=== PATIENT | female | born 1980 | race Caucasian/White ===

== ENCOUNTER 2023-10-26 09:16 | Emergency (ER) | payer OTHER ==
[~2023-10-26] VITALS: Ht 182.9 cm; Wt 63.0 kg
[2023-10-26 09:33] VITALS: BP_SYST 107; PULSE 82; RESP 16; TEMP 98.8; O2SAT 99
[2023-10-26] MEDS: KETOROLAC TROMETHAMINE 30 MG VIAL IM ONE (10:04)
[2023-10-26] MEDS: ACETAMINOPHEN 500 MG TABLET PO ONE (10:04)
[2023-10-26] MEDS: LIDOCAINE PATCH 5% 1 EA TP ONE (10:05)
[2023-10-26 11:23] LABS: BILIRUBIN,URINE NEGATIVE (NEGATIVE); BLOOD, URINE NEGATIVE (NEGATIVE); CLARITY/URINE CLOUDY (CLEAR); COLOR,URINE YELLOW (YELLOW); GLUCOSE,URINE NEGATIVE (NEGATIVE); KETONES,URINE NEGATIVE (NEGATIVE); LEUKOCYTE ESTERASE ,URINE 3+ (NEGATIVE); NITRITE, URINE POSITIVE (NEGATIVE); PROTEIN URINE NEGATIVE (NEGATIVE); UROBILINOGEN,URINE 0.2 (0.2-1.0)
[2023-10-26 11:38] LABS: BACTERIA,URINE MANY /HPF (None Seen); MUCUS,URINE 1+ /LPF (None Seen); TRICHOMONAS,URINE Moderate /HPF (None Seen); WBC,URINE 20-50 /HPF (0-3)
[2023-10-26] MEDS ORDERED: METR-154 PO (12:41)
[2023-10-26] MEDS ORDERED: NAPR-690 PO (12:41)
[2023-10-26] MEDS ORDERED: CEPH-548 PO (12:41)
[2023-10-26 12:55] VITALS: BP_SYST 107; PULSE 82; RESP 16; TEMP 98.8; O2SAT 99
== END 2023-10-26 12:52 | disposition home or self-care (01) ==
LOC: SED 09:16
DX: N39.0 Urinary tract infection, site not specified (principal); A59.9 Trichomoniasis, unspecified; M54.50 Low back pain, unspecified; R30.0 Dysuria; R35.0 Frequency of micturition; Z88.0 Allergy status to penicillin; Z79.899 Other long term (current) drug therapy
CPT/HCPCS: 99283; 81001; 87086; 36415; 81025; 96372; 87491; 81000; 81015; J1885; 87186

== ENCOUNTER 2023-10-29 14:59 | Emergency (ER) | payer OTHER ==
[~2023-10-29] VITALS: Ht 182.9 cm; Wt 59.0 kg
[~2023-10-29 14:59] MED LIST: CEPH-548 PO; METR-154 PO; NAPR-690 PO
[2023-10-29 15:00] VITALS: BP_SYST 126; PULSE 90; RESP 17; TEMP 98.3; O2SAT 99
[2023-10-29 16:22] LABS: ALBUMIN 3.2 g/dL (3.4-4.8); BILIRUBIN,DIRECT 0.1 mg/dL (0.0-0.3); CALCIUM 8.2 mg/dL (8.4-11.0); CREATININE 0.84 mg/dL (0.55-1.30); POTASSIUM 3.8 mmol/L (3.5-5.1); TOTAL BILIRUBIN 0.3 mg/dL (0.0-1.0); TOTAL PROTEIN, SERUM 6.6 g/dL (6.4-8.3)
[2023-10-29 16:37] LABS: BASOPHILS # (AUTO) 0.1 K/uL (0.0-0.2); BASOPHILS % (AUTO) 0.9 % (0.0-2.0); EOSINOPHILS # (AUTO) 0.2 K/uL (0.0-0.4); EOSINOPHILS % (AUTO) 2.5 % (0.0-4.0); HEMATOCRIT 29.3 % (36-48); HEMOGLOBIN 9.2 g/dL (12.0-16.0); LYMPHOCYTES # (AUTO) 0.8 K/uL (1.0-5.5); LYMPHOCYTES % (AUTO) 13.8 % (20.5-51.5); MEAN CORPUSCULAR HEMOGLOBIN 23 pg (27-31); MEAN CORPUSCULAR HGB CONC 31 % (32-36); MEAN CORPUSCULAR VOLUME 72 fL (79.0-98.0); MONOCYTES # (AUTO) 1.1 K/uL (0.0-1.0); MONOCYTES % (AUTO) 17.9 % (1.7-9.3); NEUTROPHILS # (AUTO) 3.9 K/uL (1.8-7.7); NEUTROPHILS % (AUTO) 64.9 % (40.0-70.0); RED BLOOD CELL COUNT(AUTO) 4.05 MIL/uL (4.2-6.2); RED CELL DISTRIBUTION WIDTH 17.2 % (9.0-15.0); WHITE BLOOD COUNT (AUTO) 6.1 K/uL (4.8-10.8)
[2023-10-29 19:05] LABS: PLATELET COUNT (AUTO) 152 K/uL (130-430)
[2023-10-29 19:06] LABS: ANISOCYTOSIS 1+; HYPOCHROMASIA 1+
[2023-10-29 19:07] LABS: TARGET CELLS FEW
== END 2023-10-29 16:35 | disposition left against medical advice (07) ==
LOC: SED 14:59
DX: R10.9 Unspecified abdominal pain (principal); Z53.21 Procedure and treatment not carried out due to patient leaving prior to being seen by health care provider
CPT/HCPCS: 36415; 80048; 80076; 83690; 85025; 99281

== ENCOUNTER 2024-05-11 10:00 | Emergency (ER) | payer OTHER ==
[~2024-05-11] VITALS: Ht 182.9 cm; Wt 63.5 kg
[2024-05-11 10:29] VITALS: BP_SYST 123; PULSE 75; RESP 18; TEMP 98.3; O2SAT 100
== END 2024-05-11 11:06 | disposition left against medical advice (07) ==
LOC: SED 10:00
DX: M79.602 Pain in left arm (principal); M79.601 Pain in right arm; Z53.21 Procedure and treatment not carried out due to patient leaving prior to being seen by health care provider